=== PATIENT | male | born 1960 | race Caucasian/White ===

== ENCOUNTER 2016-09-23 11:45 | Emergency (ER) | payer MEDICARE ==
[~2016-09-23 11:45] MED LIST: MS C60TA2 PO; MULT-6 PO; PERC10TA27 PO; VITA100064 PO
[2016-09-23 11:54] VITALS: BP 140/83; PULSE 80; RESP 16; TEMP 98.1; O2SAT 98
[2016-09-23] MEDS ORDERED: ASPI81CH CHEW (12:01)
--- NOTE | 2016-09-23 12:05 | PD ---
HPI Chief Complaint: Chest Pain Time Seen by Provider: 12:05 Travel History International Travel<30 days: No Contact w/Intl Traveler<30days: No Traveled to known affect area: No History of Present Illness HPI 55-year-old male came to the emergency room with history of vomiting for past 5 days. Patient says he is unable to keep any food down. His last vomiting was 1 hour ago. He also has history of coronary artery disease and has a defibrillator. He says he felt an hour ago that his chest got hit by a baseball bat. He thinks his defibrillator went off. He's been having some chest pain associated with all this. He says his has the same symptoms and is in a shelter. Vital signs were within acceptable limits. He took an aspirin at home today. [facility] Past Medical History Narrative Medical List of his past medical, surgical, family and social history was reviewed from the nursing note. Cancer: No Cardiovascular Problems: Yes Coronary Artery Disease: Yes Diabetes: No Diminished Hearing: No Endocrine: No Gastrointestinal Disorders: Yes (hx of gastric by-pass) Genitourinary: No Hepatitis: Yes (C) Hiatal Hernia: No Immune Disorder: No Musculoskeletal: Yes Neurologic: Yes (back problems christiano hands occ numbness and tingling) Psychiatric: No Reproductive: No Respiratory: No Myocardial Infarction: Yes Thyroid Disease: No PNEUMOCCOCAL Vaccine (Year): 2009 Past Surgical History Abdominal Surgery: Yes (GASTRIC BYPASS lap jd) AICD: No Cardiac Surgery: Yes (PACER MAKER ) Cholecystectomy: Yes Joint Replacement: No Oral Surgery: Yes (sinusotomy) Pacemaker: Yes (2005 ) Other Surgery: Yes (LEFT FACE RECONSTRUCTION) Social History Alcohol Use: No Tobacco Use: Yes (1PPD) Substance Use: No Allergies-Medications (Allergen,Severity, Reaction): Coded Allergies: Benadryl (Verified Allergy, Severe, UNKNOWN, 09/23/16) Darvon (Verified Allergy, Severe, RASH, 09/23/16) Demerol (Verified Allergy, Severe, Anaphylaxis, 09/23/16) Vistaril (Verified Allergy, Severe, MOUTH EXCORAITION, 09/23/16) Comments List of his allergies reviewed from the nursing note. Reported Meds & Prescriptions Reported Meds & Active Scripts Active Reported Metoprolol Tartrate 25 Mg Tab 25 Mg PO DAILY Aspirin 81 Mg Chew 81 Mg CHEW DAILY Vitamin D (Cholecalciferol) 1,000 Unit Tab 1,000 Units PO DAILY Centrum (Multiple Vitamins W/ Minerals) 1 Tab 1 Tab PO DAILY Percocet (Oxycodone-Acetaminophen) 10-325 mg Tab 1 Tab PO Q6H PRN Contin (Morphine Sulfate) 60 Mg Tab 60 Mg PO BID Narrative Medication List of his own medications reviewed from the nursing note. Review of Systems Except as stated in HPI: all other systems reviewed are Neg Physical Exam Narrative GENERAL: Awake, alert, anxious, moderate distress SKIN: Focused skin assessment warm/dry. HEAD: Atraumatic. Normocephalic. EYES: Pupils equal and round. No scleral icterus. No injection or drainage. ENT: No nasal bleeding or discharge. Dry mucous membrane NECK: Trachea midline. No JVD. CARDIOVASCULAR: Regular rate and rhythm. No murmur appreciated. RESPIRATORY: No accessory muscle use. Clear to auscultation. Breath sounds equal bilaterally. GASTROINTESTINAL: Abdomen soft, non-tender, nondistended. Hepatic and splenic margins not palpable. MUSCULOSKELETAL: No obvious deformities. No clubbing. No cyanosis. No edema. NEUROLOGICAL: Awake and alert. No obvious cranial nerve deficits. Motor grossly within normal limits. Normal speech. PSYCHIATRIC: Appropriate mood and affect; insight and judgment normal. Data Data Last Documented VS Orders Electrocardiogram (09/23/16 12:12) Basic Metabolic Panel (Bmp) (09/23/16 12:12) Ckmb (Isoenzyme) Profile (09/23/16 12:12) Complete Blood Count With Diff (09/23/16 12:12) Magnesium (Mg) (09/23/16 12:12) Prothrombin Time / Inr (Pt) (09/23/16 12:12) Act Partial Throm Time (Ptt) (09/23/16 12:12) Troponin I (09/23/16 12:12) Chest, Single Ap (09/23/16 12:12) Ecg Monitoring (09/23/16 12:12) Bilateral Bp Monitoring (09/23/16 12:12) Iv Access Insert/Monitor (09/23/16 12:12) Oximetry (09/23/16 12:12) Oxygen Administration (09/23/16 12:12) Sodium Chloride 0.9% Flush (Ns Flush) (09/23/16 12:15) Sodium Chlor 0.9% 1000 Ml Inj (Ns 1000 M (09/23/16 12:15) Morphine Inj (Morphine Inj) (09/23/16 12:30) Ondansetron Inj (Zofran Inj) (09/23/16 12:30) Labs MDM Medical Decision Making Medical Screen Exam Complete: Yes Emergency Medical Condition: Yes Medical Record Reviewed: Yes Interpretation(s) Twelve-lead EKG was reviewed by me. Normal sinus rhythm, long QTC, normal axis. Heart rate of 60 bpm. Differential Diagnosis ACS, STEMI, electrolyte abnormality, dehydration Narrative Course 12:28 PM awaiting for the blood test results to come back. Patient has been complaining of pain and he's been given pain medication. I've ordered a liter of IV fluid bolus as well. [employer] business process representative has been called to interrogate device. 1:[address] [employer] business process representative was here who has interrogated the device. He corrected that the patient does not have any ICD but instead a dual-chamber pacemaker only. In which case the device couldn't have fired. And has had very brief runs of ventricular tachycardia over the past few days. He is going to discuss that report with Dr. Hogan as well. Patient has not vomited anymore since then. The blood test results of back and they are completely within normal limits. I'm comfortable discharging this patient home. He needs to follow up with Dr. Hogan at this point. Procedures EKG Prior to Arrival: Yes Diagnosis Primary Impression: Vomiting Qualified Code: R11.2 - Non-intractable vomiting with nausea, unspecified vomiting type Additional Impression: Chest pain Qualified Code: R07.9 - Chest pain, unspecified type Referrals: Primary Care Physician 2 days Additional Instructions: Please return to the ER if the condition worsens or any other new concerns. Lites follow-up with your neon sign worker in your primary care in couple days. Med/Other Pt SpecificInfo: No Change to Meds Disposition: 01 DISCHARGE HOME Condition: Stable Alondra Hartley MD Sep 23, 2016 12:05 Monocytes # (Auto) 0.7 TH/MM3 Eosinophils # (Auto) 0.0 TH/MM3 Basophils # (Auto) 0.1 TH/MM3 CBC Comment DIFF FINAL Differential Comment Prothrombin Time 12.8 SEC Prothromb Time International 1.2 RATIO Ratio Activated Partial 26.6 SEC Thromboplast Time Sodium Level 142 MEQ/L Potassium Level 3.8 MEQ/L Chloride Level 108 MEQ/L Carbon Dioxide Level 23.1 MEQ/L Anion Gap 11 MEQ/L Blood Urea Nitrogen 11 MG/DL Creatinine 1.00 MG/DL Estimat Glomerular Filtration 78 ML/MIN Rate Random Glucose 97 MG/DL Calcium Level 9.2 MG/DL Magnesium Level 2.0 MG/DL Total Creatine Kinase 81 U/L Troponin I LESS THAN 0.02 NG/ML MDM Medical Decision Making Medical Screen Exam Complete: Yes Emergency Medical Condition: Yes Medical Record Reviewed: Yes Interpretation(s) Twelve-lead EKG was reviewed by me. Normal sinus rhythm, long QTC, normal axis. Heart rate of 60 bpm. Differential Diagnosis ACS, STEMI, electrolyte abnormality, dehydration Narrative Course 12:28 PM awaiting for the blood test results to come back. Patient has been complaining of pain and he's been given pain medication. I've ordered a liter of IV fluid bolus as well. [employer] business process representative has been called to interrogate device. 1:[address] [employer] business process representative was here who interrogated the device. He corrected that the patient does not have any ICD but instead a dual-chamber pacemaker. In which case the device couldn't have fired. And has had very brief runs of ventricular tachycardia over the past few days. He is going to discuss that report with Dr. Hogan as well. Patient has not vomited anymore since then. The blood test results of back and they are completely within normal limits. I'm comfortable discharging this patient home. He needs to follow up with Dr. Hogan at this point. Procedures EKG Prior to Arrival: Yes Diagnosis Primary Impression: Vomiting Qualified Code: R11.2 - Non-intractable vomiting with nausea, unspecified vomiting type Additional Impression: Chest pain Qualified Code: R07.9 - Chest pain, unspecified type Referrals: Primary Care Physician 2 days Additional Instructions: Please return to the ER if the condition worsens or any other new concerns. Lites follow-up with your neon sign worker in your primary care in couple days. Med/Other Pt SpecificInfo: No Change to Meds Disposition: 01 DISCHARGE HOME Condition: Stable Alondra Hartley MD Sep 23, 2016 12:05
[2016-09-23] MEDS ORDERED: METO25TA3 PO (12:10)
[2016-09-23 12:15] VITALS: O2SAT 97
[2016-09-23] MEDS ORDERED: SODIUM CHLORIDE 0.9% FLUSH 10 ML FLUSH IVF PRN (12:15)
[2016-09-23] MEDS ORDERED: SODIUM CHLOR 0.9% 1000 ML INJ 1,000 ML IV ONE (12:15)
[2016-09-23 12:26] LABS: AUTOMATED NEUTROPHIL # 6.2 TH/MM3 (1.8-7.7); BASOPHIL # 0.1 TH/MM3 (0-0.2); BASOPHIL % 0.7 % (0.0-2.0); EOSINOPHIL % 0.1 % (0.0-4.0); HEMATOCRIT 52.9 % (39.0-51.0); LYMPH % 26.5 % (9.0-44.0); LYMPHOCYTE # 2.5 TH/MM3 (1.0-4.8); MEAN CELL VOLUME 87.1 FL (80.0-100.0); MEAN CORPUSCULAR HEMOGLOBIN 28.3 PG (27.0-34.0); MEAN CORPUSCULAR HGB CONC 32.5 % (32.0-36.0); MONO % 7.6 % (0.0-8.0); NEUT % 65.1 % (16.0-70.0); PLATELET COUNT 253 TH/MM3 (150-450); RED BLOOD COUNT 6.07 MIL/MM3 (4.50-5.90); RED CELL DISTRIBUTION WIDTH 14.5 % (11.6-17.2); WHITE BLOOD COUNT 9.5 TH/MM3 (4.0-11.0)
[2016-09-23 12:27] LABS: HEMO FLAGS DIFF FINAL
[2016-09-23] MEDS ORDERED: ONDANSETRON HCL 4 MG/2 ML VIAL IV PUSH ONE (12:30)
[2016-09-23] MEDS ORDERED: MORPHINE SULFATE 4 MG/ML INJ IV PUSH ONE (12:30)
[2016-09-23 12:37] LABS: CHLORIDE 108 MEQ/L (98-107); POTASSIUM 3.8 MEQ/L (3.5-5.1); SODIUM (NA) 142 MEQ/L (136-145)
[2016-09-23 12:40] LABS: ANION GAP 11 MEQ/L (5-15); BICARBONATE 23.1 MEQ/L (21.0-32.0); BLOOD UREA NITROGEN 11 MG/DL (7-18)
[2016-09-23 12:41] LABS: APTT (PATIENT) 26.6 SEC (24.3-30.1); INTERNATIONAL NORMALIZED RATIO 1.2 RATIO; PROTHROMBIN TIME - PATIENT 12.8 SEC (9.8-11.6)
[2016-09-23 12:43] LABS: GLOMERULAR FILTRATION RATE 78 ML/MIN (>89)
[2016-09-23 12:51] LABS: CREATINE KINASE 81 U/L (39-308)
--- NOTE | 2016-09-23 13:35 | RADHPO ---
EXAM DATE/TIME: 09/23/2016 12:39 [facility] COMPARISON: CHEST SINGLE AP, May 05, 2016, 9:06. INDICATIONS : Chest pain today. MEDICAL HISTORY : Myocardial infarction. Hepatitis C. Coronary artery disease. SURGICAL HISTORY : Pacemaker. ENCOUNTER: Initial ACUITY: 1 day PAIN SCORE: 8/10 LOCATION: Bilateral chest FINDINGS: A single view of the chest demonstrates the lungs to be symmetrically aerated without evidence of mas s, infiltrate or effusion. Patient is in the right chest. The cardiomediastinal contours are unremar kable. Osseous structures are intact. CONCLUSION: No acute disease. Pacemaker on the right. Alexander Zhang MD FACR on September 23, 2016 at 13:32 Board Certified Radiologist. This report was verified electronically.
--- NOTE | 2016-09-24 13:53 | EKG ---
Date Performed: 09/23/2016 Time Performed: 11:44:56 PTAGE: 55 years EKG: Normal Sinus rhythm with ectopic atrial beats. Abnormal ECG PREVIOUS TRACING : 05/05/2016 14.42 Compared to the previous tracing there is no significant ch vanessa. DOCTOR: Pieter Trinidad Interpretating Date/Time 09/24/2016 13:50:33
== END 2016-09-23 14:11 | disposition home or self-care (01) ==
LOC: PHED 11:45
DX: R11.2 Nausea with vomiting, unspecified (principal); R07.9 Chest pain, unspecified; R94.31 Abnormal electrocardiogram [ECG] [EKG]; I47.2 Ventricular tachycardia; F17.200 Nicotine dependence, unspecified, uncomplicated; I25.2 Old myocardial infarction; Z95.0 Presence of cardiac pacemaker; Z98.84 Bariatric surgery status; Z86.79 Personal history of other diseases of the circulatory system; Z87.19 Personal history of other diseases of the digestive system; Z86.19 Personal history of other infectious and parasitic diseases; Z87.39 Personal history of other diseases of the musculoskeletal system and connective tissue; Z86.69 Personal history of other diseases of the nervous system and sense organs
CPT/HCPCS: 71010; 80048; 82550; 83735; 84484; 85025; 85610; 85730; 93005; 96361; 96374; 96375; 99285; J2270; J2405; J7030

== ENCOUNTER 2016-11-10 05:58 | Inpatient (IN) | payer MEDICARE ==
[2016-11-10] VITALS (21 sets, daily range): BP systolic 84–154; BP diastolic 57–78; PULSE 75–151; RESP 14–22; TEMP 97.6–99.5; O2SAT 96–100
[~2016-11-10] VITALS: Ht 177.8 cm; Wt 71.9 kg
[~2016-11-10 05:58] MED LIST changes: +ASPI81CH CHEW; +METO25TA3 PO
[2016-11-10] MEDS ORDERED: SODIUM CHLOR 0.9% 1000 ML INJ 1,000 ML IV SCH (06:17)
--- NOTE | 2016-11-10 06:28 | PD ---
HPI Chief Complaint: GI bleed Time Seen by Provider: 06:17 Travel History International Travel<30 days: No Contact w/Intl Traveler<30days: No Traveled to known affect area: No History of Present Illness HPI 56-year-old male presents to the emergency department by private transportation in the care of his family for evaluation of generalized weakness and red blood per rectum. Patient underwent colonoscopy yesterday and endoscopy by Dr Ponce at [facility]. Patient had biopsies. Patient states that the colonoscopy was not completed due to too much stool in the intestinal tract. Patient states since 2:30 after yesterday afternoon he's had abdominal pain and has noted some red blood per rectum. Patient states she's had approximate 5-6 bloody stools and 4-5 episodes of hematemesis. No coffee- ground emesis. Patient has history of CAD with previous PR and secondary cardiomyopathy with pacemaker AICD placement. Patient also has prior history of hypertension and hepatitis B hepatitis C and more recently has been concerning for liver cancer. Patient has had 70 pound weight loss in a 3 month period. Patient has not had syncope or near syncope and has not had chest pain or new shortness of breath. Patient does complain of generalized abdominal pain. Patient complains of generalized weakness. Patient does not take any blood thinning agent other than a daily low-dose aspirin. Patient denies fever chills.. PFSH Past Medical History Narrative Medical CAD PR pacemaker AICD gastric bypass hepatitis C chronic pain syndrome with peripheral neuropathy cholecystectomy tobaccoism; nursing notes reviewed Cancer: No Cardiovascular Problems: Yes Coronary Artery Disease: Yes Diabetes: No Diminished Hearing: No Endocrine: No Gastrointestinal Disorders: Yes (hx of gastric by-pass) Genitourinary: No Hepatitis: Yes (C) Hiatal Hernia: No Immune Disorder: No Musculoskeletal: Yes Neurologic: Yes (back problems christiano hands occ numbness and tingling) Psychiatric: No Reproductive: No Respiratory: No Myocardial Infarction: Yes Thyroid Disease: No PNEUMOCCOCAL Vaccine (Year): 2009 Past Surgical History Abdominal Surgery: Yes (GASTRIC BYPASS lap jd) AICD: No Cardiac Surgery: Yes (PACER MAKER ) Cholecystectomy: Yes Joint Replacement: No Oral Surgery: Yes (sinusotomy) Pacemaker: Yes (2005 ) Other Surgery: Yes (LEFT FACE RECONSTRUCTION) Social History Alcohol Use: No Tobacco Use: Yes (1PPD) Substance Use: No Allergies-Medications (Allergen,Severity, Reaction): Coded Allergies: Benadryl (Verified Allergy, Severe, UNKNOWN, 11/10/16) Darvon (Verified Allergy, Severe, RASH, 11/10/16) Demerol (Verified Allergy, Severe, Anaphylaxis, 11/10/16) Vistaril (Verified Allergy, Severe, MOUTH EXCORAITION, 11/10/16) Reported Meds & Prescriptions Reported Meds & Active Scripts Active Reported Calcium Ascorbate 500 Mg Tab 500 Mg PO DAILY Centrum Silver Men Tablet (Multivit-Min/FA/Lycopen/Lutein) 1 Each Tablet 1 Tab PO DAILY Morphine ER (Morphine Sulfate) 60 Mg Tab 60 Mg PO TID Vitamin D (Cholecalciferol) 1,000 Unit Tab 1,000 Units PO DAILY Percocet (Oxycodone-Acetaminophen) 10-325 mg Tab 1 Tab PO Q6H PRN Review of Systems Except as stated in HPI: all other systems reviewed are Neg General / Constitutional: No: Fever, Chills HENT: No: Congestion Cardiovascular: Positive: Palpitations, Tachycardia, No: Chest Pain or Discomfort Respiratory: No: Shortness of Breath Gastrointestinal: Positive: Nausea, Vomiting, Diarrhea, Abdominal Pain, Hematemesis, Hematochezia Genitourinary: No: Dysuria, Pelvic Pain Musculoskeletal: No: Myalgias, Arthralgias Skin: No Rash Neurologic: Positive: Weakness, Dizziness, No: Syncope, Focal Abnormalities, Coordination Problem Psychiatric: Positive: Anxiety Hematologic/Lymphatic: Positive: Easy Bruising Physical Exam Narrative GENERAL: Then ill-appearing male with tachycardia and hypotension SKIN: Warm and dry. HEAD: Normocephalic. EYES: No scleral icterus. No injection or drainage. NECK: Supple, trachea midline. No JVD or lymphadenopathy. CARDIOVASCULAR: Increased Regular rate and rhythm without murmurs, gallops, or rubs. RESPIRATORY: Breath sounds equal bilaterally. No accessory muscle use. GASTROINTESTINAL: Abdomen soft, non-tender, nondistended. Rectal exam: Normal sphincter tone, maroon stool on exam glove; no palpable mass MUSCULOSKELETAL: No cyanosis, or edema. BACK: Nontender without obvious deformity. No CVA tenderness. Data Data Last Documented VS Vital Signs Date Time Temp Pulse Resp B/P Pulse Ox O2 Delivery O2 Flow Rate FiO2 11/10/16 06:50 89 95/63 11/10/16 06:30 20 97 Room Air 11/10/16 06:06 97.6 Orders Complete Blood Count With Diff (11/10/16 06:17) Comprehensive Metabolic Panel (11/10/16 06:17) Lipase (11/10/16 06:17) Prothrombin Time / Inr (Pt) (11/10/16 06:17) Act Partial Throm Time (Ptt) (11/10/16 06:17) Urinalysis - C+S If Indicated (11/10/16 06:17) Type And Screen (11/10/16 06:17) Chest, Single Ap (11/10/16 06:17) Ecg Monitoring (11/10/16 06:17) Iv Access Insert/Monitor (11/10/16 06:17) Oximetry (11/10/16 06:17) Ondansetron Inj (Zofran Inj) (11/10/16 06:30) Sodium Chlor 0.9% 1000 Ml Inj (Ns 1000 M (11/10/16 06:17) Sodium Chloride 0.9% Flush (Ns Flush) (11/10/16 06:30) Pantoprazole Inj (Protonix Inj) (11/10/16 06:30) Pantoprazole Inj (Protonix Inj) (11/10/16 06:30) Sodium Chlor 0.9% 1000 Ml Inj (Ns 1000 M (11/10/16 06:30) Electrocardiogram (11/10/16 ) Magnesium (Mg) (11/10/16 06:17) Troponin I (11/10/16 06:17) Red Blood Cells (Rbc) (11/10/16 07:01) Blood Product Administration .UPON TRANSFUSION (11/10/16 07:01) Sodium Chlor 0.9% 250 Ml Inj (Ns 250 Ml (11/10/16 07:15) Sodium Chlor 0.9% 1000 Ml Inj (Ns 1000 M (11/10/16 07:15) Admit Order (Ed Use Only) (11/10/16 ) ^ Saline Lock (11/10/16 07:12) Resp Oxygen Girish C Titrat 1-4 L (11/10/16 ) Notify Dr: Other (11/10/16 07:12) Sodium Chloride 0.9% Flush (Ns Flush) (11/10/16 09:00) Sodium Chloride 0.9% Flush (Ns Flush) (11/10/16 07:15) Labs Laboratory Tests Test 11/10/16 06:20 White Blood Count 15.3 TH/MM3 Red Blood Count 3.83 MIL/MM3 Hemoglobin 11.6 GM/DL Hematocrit 35.0 % Mean Corpuscular Volume 91.4 FL Mean Corpuscular Hemoglobin 30.3 PG Mean Corpuscular Hemoglobin 33.1 % Concent Red Cell Distribution Width 16.1 % Platelet Count 248 TH/MM3 Mean Platelet Volume 7.6 FL Neutrophils (%) (Auto) 70.7 % Lymphocytes (%) (Auto) 22.1 % Monocytes (%) (Auto) 6.2 % Eosinophils (%) (Auto) 0.7 % Basophils (%) (Auto) 0.3 % Neutrophils # (Auto) 10.9 TH/MM3 Lymphocytes # (Auto) 3.4 TH/MM3 Monocytes # (Auto) 0.9 TH/MM3 Eosinophils # (Auto) 0.1 TH/MM3 Basophils # (Auto) 0.0 TH/MM3 CBC Comment DIFF FINAL Differential Comment Prothrombin Time 12.3 SEC Prothromb Time International 1.1 RATIO Ratio Activated Partial 24.0 SEC Thromboplast Time Sodium Level 144 MEQ/L Potassium Level 5.1 MEQ/L Chloride Level 110 MEQ/L Carbon Dioxide Level 25.5 MEQ/L Anion Gap 9 MEQ/L Blood Urea Nitrogen 32 MG/DL Creatinine 0.97 MG/DL Estimat Glomerular Filtration 80 ML/MIN Rate Random Glucose 159 MG/DL Calcium Level 8.2 MG/DL Magnesium Level 1.8 MG/DL Total Bilirubin 0.4 MG/DL Aspartate Amino Transf 13 U/L (AST/SGOT) Alanine Aminotransferase 25 U/L (ALT/SGPT) Alkaline Phosphatase 49 U/L Troponin I LESS THAN 0.02 NG/ML Total Protein 5.1 GM/DL Albumin 2.5 GM/DL Lipase 69 U/L [facility] Medical Decision Making Medical Screen Exam Complete: Yes Emergency Medical Condition: Yes Medical Record Reviewed: Yes Interpretation(s) EKG: Normal sinus rhythm rate 84 nonspecific septal T wave changes no acute ST elevation or injury pattern change noted Vital Signs Date Time Temp Pulse Resp B/P Pulse Ox O2 Delivery O2 Flow Rate FiO2 11/10/16 06:50 89 95/63 11/10/16 06:30 92 20 97/64 97 Room Air 11/10/16 06:15 98 Room Air 11/10/16 06:06 97.6 151 18 100/76 100 CBC & BMP Diagram 11/10/16 06:20 Coagulation studies normal range Troponin I less than 0.02, not elevated LFTs are within normal limits and lipase is 69, not elevated Differential Diagnosis GI bleed, post endoscopy/colonoscopy complication, AVM, intestinal perforation, coagulopathy, anemia, hemorrhagic shock Narrative Course Patient placed on property assessment monitor to 18-gauge angiocatheter inserted patient given normal saline bolus 1 L normal saline 2 along with Protonix infusion Zofran 4 mg and type and screen; patient and family informed that he will require admission and may require transfer to [facility] Hemoglobin: 11.6 @ 6:51 AM her rate is 90 blood pressure is 96/54; discussing patient with Dr Mcguire ---request 3rd liter of NS Physician Communication Physician Communication call placed to manufacturing industrial engineer --- Dr Mgcuire --will be in to see; call placed to GI -- discussed with Dr Hopson Diagnosis Primary Impression: Upper gastrointestinal bleed Additional Impressions: Anemia Qualified Code: D64.9 - Anemia, unspecified type Hypotension Qualified Code: I95.9 - Hypotension, unspecified hypotension type Admitting Information Admitting Physician Requests: Admit Olivia Ortiz MD Nov 10, 2016 06:28
[2016-11-10] MEDS ORDERED: ONDANSETRON HCL 4 MG/2 ML VIAL IVP ONE (06:30)
[2016-11-10] MEDS ORDERED: SODIUM CHLOR 0.9% 1000 ML INJ 1,000 ML IV ONE ×3 (06:30→09:00)
[2016-11-10] MEDS ORDERED: SODIUM CHLORIDE 0.9% FLUSH 10 ML FLUSH IVF PRN ×2 (06:30→07:15)
[2016-11-10] MEDS ORDERED: PANTOPRAZOLE INJ 80 MG in SODIUM CHLORIDE 0.9% INJ 35 ML IV ONE (06:30)
--- NOTE | 2016-11-10 06:34 | RADHPO ---
EXAM DATE/TIME: 11/10/2016 06:25 [facility] COMPARISON: CHEST SINGLE AP, September 23, 2016, 12:39. INDICATIONS : Chest pain. MEDICAL HISTORY : Myocardial infarction. Hepatitis C. Coronary artery disease. SURGICAL HISTORY : Pacemaker. ENCOUNTER: Initial ACUITY: 1 day PAIN SCORE: 4/10 LOCATION: Bilateral chest FINDINGS: A single view of the chest demonstrates the lungs to be symmetrically aerated without evidence of mas s, infiltrate or effusion. The cardiomediastinal contours are unremarkable. Osseous structures are intact. CONCLUSION: Normal examination. Right subclavian multilead pacer in good position Quincy Thomas MD on November 10, 2016 at 6:33 Board Certified Radiologist. This report was verified electronically.
[2016-11-10] MEDS: PANTOPRAZOLE INJ 80 MG in SODIUM CHLORIDE 0.9% INJ 100 ML IV SCH ×3 (06:43→19:53)
[2016-11-10 06:45] LABS: AUTOMATED NEUTROPHIL # 10.9 TH/MM3 (1.8-7.7); BASOPHIL % 0.3 % (0.0-2.0); EOSINOPHIL # 0.1 TH/MM3 (0-0.4); EOSINOPHIL % 0.7 % (0.0-4.0); HEMO FLAGS DIFF FINAL; LYMPH % 22.1 % (9.0-44.0); LYMPHOCYTE # 3.4 TH/MM3 (1.0-4.8); MEAN CELL VOLUME 91.4 FL (80.0-100.0); MEAN CORPUSCULAR HEMOGLOBIN 30.3 PG (27.0-34.0); MEAN CORPUSCULAR HGB CONC 33.1 % (32.0-36.0); MONO % 6.2 % (0.0-8.0); NEUT % 70.7 % (16.0-70.0); PLATELET COUNT 248 TH/MM3 (150-450); RED BLOOD COUNT 3.83 MIL/MM3 (4.50-5.90); RED CELL DISTRIBUTION WIDTH 16.1 % (11.6-17.2); WHITE BLOOD COUNT 15.3 TH/MM3 (4.0-11.0)
[2016-11-10 06:56] LABS: CHLORIDE 110 MEQ/L (98-107); POTASSIUM 5.1 MEQ/L (3.5-5.1); SODIUM (NA) 144 MEQ/L (136-145)
[2016-11-10 07:00] LABS: ANION GAP 9 MEQ/L (5-15); BICARBONATE 25.5 MEQ/L (21.0-32.0); BLOOD UREA NITROGEN 32 MG/DL (7-18); INTERNATIONAL NORMALIZED RATIO 1.1 RATIO; MAGNESIUM 1.8 MG/DL (1.5-2.5); PROTHROMBIN TIME - PATIENT 12.3 SEC (9.8-11.6)
[2016-11-10] MEDS ORDERED: MORP1TAB26 PO (07:00)
[2016-11-10] MEDS ORDERED: MULT1TAB64 PO (07:00)
[2016-11-10 07:03] LABS: ALT (GPT) 25 U/L (12-78); AST (GOT) 13 U/L (15-37); GLOMERULAR FILTRATION RATE 80 ML/MIN (>89)
[2016-11-10 07:05] LABS: TOTAL BILIRUBIN ADULT 0.4 MG/DL (0.2-1.0)
[2016-11-10] MEDS ORDERED: CALC500T37 PO (07:05)
[2016-11-10 07:06] LABS: ALKALINE PHOSPHATASE 49 U/L (45-117)
[2016-11-10] MEDS ORDERED: SODIUM CHLOR 0.9% 250 ML INJ 250 ML IV ONE (07:15)
[2016-11-10] MEDS ORDERED: CYAN1000P SQ (07:19)
[2016-11-10] MEDS ORDERED: CHLORHEXIDINE GLUCONATE 2 % 1 PACK (2 CLOTHS) TOP PRN (07:30)
[2016-11-10] MEDS ORDERED: RESP: ALBUTEROL 2.5 MG/IPRATROPIUM 0.5 MG NEB (PRN) INH (07:30)
[2016-11-10] MEDS ORDERED: LACTULOSE SYRUP 20 GM/30 ML CUP PO PRN (07:30)
[2016-11-10] MEDS ORDERED: METOCLOPRAMIDE HCL 10 MG/2 ML VIAL IV PRN (07:30)
[2016-11-10] MEDS ORDERED: ACETAMINOPHEN 325 MG TAB PO PRN (07:30)
[2016-11-10] MEDS ORDERED: MISCELLANEOUS NURSING INFORMATION XX SCH (07:30)
[2016-11-10] MEDS ORDERED: SODIUM CHLORIDE 0.9% FLUSH 10 ML FLUSH IV FLUSH PRN (07:30)
[2016-11-10] MEDS ORDERED: SENNOSIDES 8.6 MG TAB PO PRN (07:30)
[2016-11-10] MEDS ORDERED: MAGNESIUM HYDROXIDE SUSP 30 ML CUP PO PRN (07:30)
[2016-11-10] MEDS ORDERED: BISACODYL 10 MG SUPP RECTAL PRN (07:30)
[2016-11-10] MEDS ORDERED: ONDANSETRON HCL 4 MG/2 ML VIAL IV PRN (07:30)
[2016-11-10] MEDS: SODIUM CHLOR 0.9% 1000 ML INJ 1,000 ML IV SCH ×2 (08:53→11:17)
[2016-11-10] MEDS ORDERED: MORPHINE SULFATE 4 MG/ML INJ IV ONE (09:00)
[2016-11-10] MEDS: DOCUSATE SODIUM 50 MG/SENNA 8.6 MG TAB PO SCH ×2 (09:00→19:53)
[2016-11-10] MEDS ORDERED: SODIUM CHLORIDE 0.9% FLUSH 10 ML FLUSH IV FLUSH SCH (09:00)
[2016-11-10 09:14] LABS: HEMATOCRIT 26.4 % (39.0-51.0); REVIEW FLAG FINAL
[2016-11-10] MEDS ORDERED: IOHEXOL 350 MG/ML 10 ML VIAL (for RAD DIAG) IV ONE (09:23)
--- NOTE | 2016-11-10 09:45 | HHI.HP ---
HPI Service Critical Care Medicine Primary Care Physician Non-Staff Admission Diagnosis Upper GI Bleed w/ hypotension; s/p EGD Diagnosis: Chief Complaint: Rectal bleeding, hematemesis Travel History International Travel<30 Days: No Contact w/Intl Traveler <30 Da: No Traveled to Known Affected Are: No History of Present Illness HPI 56-year-old male presents to the emergency department by private transportation in the care of his family for evaluation of generalized weakness and red blood per rectum. Patient underwent colonoscopy yesterday and endoscopy by Dr Ponce at [facility]. Patient had biopsies. Patient states that the colonoscopy was not completed due to too much stool in the intestinal tract. Patient states since 2:30 after yesterday afternoon he's had abdominal pain and has noted some red blood per rectum. Patient states she's had approximate 5-6 bloody stools and 4-5 episodes of hematemesis. No coffee- ground emesis. Patient has history of CAD with previous [place] 13 years ago at which time he also had a pacemaker placed and recently had the pacemaker replaced due to low battery. Patient also has prior history of hypertension and hepatitis B hepatitis C. Patient has had 70 pound weight loss in a 3 month period. Patient has not had syncope or near syncope and has not had chest pain or new shortness of breath. Patient started experiencing abdominal pain last night and around 2:30 AM had a bout of nausea vomiting with hematemesis as well as multiple bowel movements which had fresh blood filling of the toilet bowl according to patient's . Currently Patient does complain of generalized abdominal pain. Patient complains of generalized weakness. Patient does not take any blood thinning agent other than a daily low-dose aspirin. Patient denies fever chills. He has not had any imaging studies of his abdomen recently. His gastric bypass was done about 16 years ago in [place]. Patient was accepted for admission by critical care medicine service. He had received 3 L of normal saline bolus at the time of my evaluation and his blood pressure up appeared to respond to fluid boluses. His normal hemoglobin runs around 17 from a few months ago and he was down to 11 g percent on arrival in the ER prior to initiating fluid boluses. Rectal exam done by ER physician showed maroon stool. Patient dropped his blood pressure to the 90s on stopping fluid bolus hence a fourth liter normal saline bolus was ordered. We are awaiting 2 units PRBCs which were ordered to be transfused by ER physician. I have asked for first unit of PRBC to be transfused stat wide open. Patient is to be transferred to the main hospital and I discussed with Dr. Hopson from GI regarding ongoing GI bleed requiring fluid boluses and he is planning on performing EGD following patient's arrival to the [facility]. CT abdomen pelvis has already been ordered and report was pending at the time of my dictation. PFSH Past Medical History Narrative Medical CAD [place] pacemaker AICD gastric bypass hepatitis C, ? Hep B, chronic pain syndrome with peripheral neuropathy cholecystectomy tobaccoism; nursing notes reviewed Cancer: No Cardiovascular Problems: Yes Coronary Artery Disease: Yes Diabetes: No Diminished Hearing: No Endocrine: No Gastrointestinal Disorders: Yes (hx of gastric by-pass) Genitourinary: No Hepatitis: Yes (C) Hiatal Hernia: No Immune Disorder: No Musculoskeletal: Yes Neurologic: Yes (back problems christiano hands occ numbness and tingling) Psychiatric: No Reproductive: No Respiratory: No Myocardial Infarction: Yes Thyroid Disease: No PNEUMOCCOCAL Vaccine (Year): 2009 Past Surgical History Abdominal Surgery: Yes (GASTRIC BYPASS lap jd) AICD: No Cardiac Surgery: Yes (PACER MAKER ) Cholecystectomy: Yes Joint Replacement: No Oral Surgery: Yes (sinusotomy) Pacemaker: Yes (2005 ) Other Surgery: Yes (LEFT FACE RECONSTRUCTION) Social History Alcohol Use: No Tobacco Use: Yes (1PPD) Substance Use: No Allergies-Medications (Allergen,Severity, Reaction): Coded Allergies: Benadryl (Verified Allergy, Severe, UNKNOWN, 11/10/16) Darvon (Verified Allergy, Severe, RASH, 11/10/16) Demerol (Verified Allergy, Severe, Anaphylaxis, 11/10/16) Vistaril (Verified Allergy, Severe, MOUTH EXCORAITION, 11/10/16) Reported Meds & Prescriptions Reported Meds & Active Scripts Active Reported Calcium Ascorbate 500 Mg Tab 500 Mg PO DAILY Centrum Silver Men Tablet (Multivit-Min/FA/Lycopen/Lutein) 1 Each Tablet 1 Tab PO DAILY Morphine ER (Morphine Sulfate) 60 Mg Tab 60 Mg PO TID Vitamin D (Cholecalciferol) 1,000 Unit Tab 1,000 Units PO DAILY Percocet (Oxycodone-Acetaminophen) 10-325 mg Tab 1 Tab PO Q6H PRN Review of Systems Except as stated in HPI: all other systems reviewed are Neg General / Constitutional: No: Fever, Chills HENT: No: Congestion Cardiovascular: Positive: Palpitations, Tachycardia, No: Chest Pain or Discomfort Respiratory: No: Shortness of Breath Gastrointestinal: Positive: Nausea, Vomiting, Diarrhea, Abdominal Pain, Hematemesis, Hematochezia Genitourinary: No: Dysuria, Pelvic Pain Musculoskeletal: No: Myalgias, Arthralgias Skin: No Rash Neurologic: Positive: Weakness, Dizziness, No: Syncope, Focal Abnormalities, Coordination Problem Psychiatric: Positive: Anxiety Hematologic/Lymphatic: Positive: Easy Bruising Physical Exam Vital Signs Vital Signs Date Time Temp Pulse Resp B/P Pulse Ox O2 Delivery O2 Flow Rate FiO2 11/10/16 09:10 17 11/10/16 07:45 89 17 112/72 100 Room Air 11/10/16 07:30 82 17 91/64 96 Room Air 11/10/16 07:30 17 11/10/16 06:50 89 95/63 11/10/16 06:30 92 20 97/64 97 Room Air 11/10/16 06:15 98 Room Air 11/10/16 06:15 136 18 84/61 100 Room Air 11/10/16 06:06 97.6 151 18 100/76 100 Physical Exam Physical Exam Narrative GENERAL: Thin ill-appearing male with tachycardia and hypotension SKIN: Warm and dry. HEAD: Normocephalic. EYES: No scleral icterus. No injection or drainage. Pallor present NECK: Supple, trachea midline. No JVD or lymphadenopathy. CARDIOVASCULAR: Increased Regular rate and rhythm without murmurs, gallops, or rubs. RESPIRATORY: Breath sounds equal bilaterally. No accessory muscle use. GASTROINTESTINAL: Abdomen soft, nondistended. Definite tenderness in lower abdomen, bowel sounds present. MUSCULOSKELETAL: No cyanosis, or edema. BACK: Nontender without obvious deformity. No CVA tenderness. Laboratory Laboratory Tests Test 11/10/16 11/10/16 11/10/16 06:20 07:01 09:00 White Blood Count 15.3 Red Blood Count 3.83 Hemoglobin 11.6 8.7 Hematocrit 35.0 26.4 Mean Corpuscular Volume 91.4 Mean Corpuscular Hemoglobin 30.3 Mean Corpuscular Hemoglobin 33.1 Concent Red Cell Distribution Width 16.1 Platelet Count 248 Mean Platelet Volume 7.6 Neutrophils (%) (Auto) 70.7 Lymphocytes (%) (Auto) 22.1 Monocytes (%) (Auto) 6.2 Eosinophils (%) (Auto) 0.7 Basophils (%) (Auto) 0.3 Neutrophils # (Auto) 10.9 Lymphocytes # (Auto) 3.4 Monocytes # (Auto) 0.9 Eosinophils # (Auto) 0.1 Basophils # (Auto) 0.0 CBC Comment DIFF FINAL Differential Comment Prothrombin Time 12.3 Prothromb Time International 1.1 Ratio Activated Partial 24.0 Thromboplast Time Sodium Level 144 Potassium Level 5.1 Chloride Level 110 Carbon Dioxide Level 25.5 Anion Gap 9 Blood Urea Nitrogen 32 Creatinine 0.97 Estimat Glomerular Filtration 80 Rate Random Glucose 159 Calcium Level 8.2 Magnesium Level 1.8 Total Bilirubin 0.4 Aspartate Amino Transf 13 (AST/SGOT) Alanine Aminotransferase 25 (ALT/SGPT) Alkaline Phosphatase 49 Troponin I LESS THAN 0.02 Total Protein 5.1 Albumin 2.5 Lipase 69 Blood Type AB POSITIVE Antibody Screen NEGATIVE Crossmatch Leukocyte-Reduced Red Blood Cells Blood Bank Comment Result Diagram: 11/10/16 0900 11/10/16 06 Imaging Last Impressions Chest X-Ray 11/10/16616 Signed Impressions: Service Date/Time: Thursday, November 10, 2016 06:25 - CONCLUSION: Normal examination. Right subclavian multilead pacer in good position Quincy Thomas MD Assessment and Plan Assessment and Plan 56-year-old male with: Hematemesis Rectal bleeding Acute blood loss anemia Hypotension History of gastric bypass History of hep C Questionable history of hep B Unexplained weight loss and 70 pounds over 3 months Coronary artery disease status post previous [place] History of pacemaker placement Plan: Neuro: Follow neuro status. Morphine when necessary for pain. Cardiovascular: Aggressive fluid resuscitation. Continue maintenance IV fluid with normal saline at 200 cc an hour. PRBC transfusions ordered. Pulmonary: Supplemental O2 as needed. Bronchodilators when necessary. Extensive smoking history noted. GI/liver: Nothing by mouth for now. GI consult requested and I have discussed the case with Dr. Hopson who will be planning further evaluation of hematemesis and rectal bleeding. Reportedly he was found to have multiple polyps in the stomach on 11/09 on EGD and multiple biopsies have been taken. Suspect bleeding from one of the biopsy sites. Awaiting CT abdomen pelvis. We'll consult general surgery to be available as backup of bleeding unable to be controlled. ID: No antibiotics at this time. Heme: Follow CBC. Serial H&H. Transfuse to keep hemoglobin above 8 g percent. 2 units PRBCs to be transfused now. Endocrine: Watch for hyperglycemia, SSI for glycemic control if needed. Check TSH in view of unexplained weight loss. Prophylaxis: On Protonix drip. SCDs. D/W ER Physician/ Dr. Hopson. D/W ER charge/ [employer]/ ICU charge in [facility] regarding need for urgent transfer Condition critical Patient being transferred to the main hospital in view of active GI bleeding with hypotension and maroon stool in anticipation of multiple blood transfusions and possible need for emergent EGDs and procedures including eccentric angiogram/bleeding scans/surgery. Time spent on critical care excluding procedures 70 minutes Mehdi Mcguire MD Nov 10, 2016 09:45
--- NOTE | 2016-11-10 09:49 | RADHPO ---
EXAM DATE/TIME: 11/10/2016 09:02 [place] COMPARISON: CT ABDOMEN & PELVIS W CONTRAST, May 05, 2016, 10:25. INDICATIONS : Vomiting blood and bloody stool since last night. IV CONTRAST: 90 cc Omnipaque 350 (iohexol) IV ORAL CONTRAST: No oral contrast ingested. RADIATION DOSE: 7.86 CTDIvol (mGy) MEDICAL HISTORY : Cardiovascular disease. Hepatitis C. SURGICAL HISTORY : Pacemaker. Cholecystectomy.Gastric bypass. ENCOUNTER: Initial ACUITY: 2 days PAIN SCALE: 6/10 LOCATION: abdomen/pelvis TECHNIQUE: Volumetric scanning of the abdomen and pelvis was performed. Using automated exposure control and ad justment of the mA and/or kV according to patient size, radiation dose was kept as low as reasonably achievable to obtain optimal diagnostic quality images. FINDINGS: The limited portion of the lung base visualized is clear. The appearance of the liver, spleen, pancreas and adrenal glands is within normal limits. There are s mall simple cysts within the kidneys bilaterally. There is no hydronephrosis. There are changes in the upper abdomen suggesting previous gastric bypass. The visualized loops of sm all and large bowel in the upper abdomen are otherwise unremarkable. The abdominal aorta is normal in caliber. There is no significant retroperitoneal lymphadenopathy. There is no free fluid within the pelvis. No iliac or inguinal adenopathy is seen. The visualized loo ps of small and large bowel are unremarkable. There are degenerative changes throughout the spine. CONCLUSION: 1. Post surgical changes involving the stomach. 2. The patient is post cholecystectomy. 3. Simple cysts within the kidneys bilaterally. 4. Degenerative changes throughout the spine. 5. No definite abnormality to explain the patient's hematochezia identified. Phuc Zhang MD on November 10, 2016 at 9:44 Board Certified Radiologist. This report was verified electronically.
[2016-11-10] MEDS ORDERED: CALCIUM GLUCONATE INJ 2 GM in SODIUM CHLORIDE 0.9% INJ 100 ML IV ONE (10:45)
--- NOTE | 2016-11-10 11:12 | PD.CONS ---
HPI History of Present Illness This is a 56 year old gentleman who presented to hospital today for hematemesis and blood in stool. Pt agitated and refusing to provide information and some of hx obtained from , EMR. This started 0230 this morning. He had lower abdominal pressure. Blood in vomit was mixed dark and bright red, some coffee ground appearance as well. He also had bright red blood per rectum, profuse, seemingly independent of stool. He was having vomit when he would strain to evacuate the blood from his rectum. He continued to have sensation of needing to have BM. He had a bloody BM about an hour ago. He also felt dizzy, and like his heart was racing. On admission he was found to be tachycardic and hypotensive. He is receiving blood now. Yesterday he had colonoscopy and upper endoscopy. Per pt colonoscopy was aborted due to suboptial prep. Colonoscopy - --> hemorrhoids, mild diverticulosis, EGD --> irr z line, hx gastric bypass, small polyp gastric fundus, multiple biopsies performed. Prior to this his last EGD and colonoscopy were in 1999. Not on blood thinners. He does have a pacemaker. Denies frequent NSAID use. Per EMR he has hx hep B, hep C, weight loss of 70 lbs in 3 months. (Kanika Abbott) PFSH Past Medical History herniated disc pt unwilling to contribute further Past Surgical History gastric bypass tumor removal nose pt unwilling to contribute further (Kanika Abbott) Coded Allergies: Benadryl (Verified Allergy, Severe, UNKNOWN, 11/10/16) Darvon (Verified Allergy, Severe, RASH, 11/10/16) Demerol (Verified Allergy, Severe, Anaphylaxis, 11/10/16) Vistaril (Verified Allergy, Severe, MOUTH EXCORAITION, 11/10/16) Family History lung ca colon ca Social History no ETOH smokes 1/2 ppd no illicit drugs (Kanika Abbott) Review of Systems Constitutional: DENIES: Fever Eyes: DENIES: Blurred vision Ears, nose, mouth, throat: DENIES: Hearing loss Respiratory: DENIES: Hemoptysis Cardiovascular: DENIES: Chest pain Gastrointestinal: COMPLAINS OF: Abdominal pain, Black stools, Bloody stools, Diarrhea, Nausea, Vomiting, Hematemesis Genitourinary: DENIES: Hematuria Musculoskeletal: DENIES: Muscle aches Integumentary: DENIES: Jaundice Hematologic/lymphatic: DENIES: Bruising Neurologic: COMPLAINS OF: Abnormal gait (uses cane) Psychiatric: DENIES: Confusion (Kanika Abbott) GI Exam Vitals I&O Vital Signs Date Time Temp Pulse Resp B/P Pulse Ox O2 Delivery O2 Flow Rate FiO2 11/10/16 09:55 97.9 84 16 112/71 99 Room Air 11/10/16 09:40 98.2 88 17 128/70 100 Room Air 11/10/16 09:25 98.3 83 17 115/72 99 Room Air 11/10/16 09:10 17 11/10/16 07:45 89 17 112/72 100 Room Air 11/10/16 07:30 82 17 91/64 96 Room Air 11/10/16 07:30 17 11/10/16 06:50 89 95/63 11/10/16 06:30 92 20 97/64 97 Room Air 11/10/16 06:15 98 Room Air 11/10/16 06:15 136 18 84/61 100 Room Air 11/10/16 06:06 97.6 151 18 100/76 100 I/O 11/09/16 11/09/16 11/09/16 11/10/16 11/10/16 11/10/16 07:00 15:00 23:00 07:00 15:00 23:00 Intake Total 3000 ml Balance 3000 ml Intake IV Total 3000 ml Laboratory Test 11/10/16 11/10/16 11/10/16 06:20 07:01 09:00 White Blood Count 15.3 TH/MM3 Red Blood Count 3.83 MIL/MM3 Hemoglobin 11.6 GM/DL 8.7 GM/DL Hematocrit 35.0 % 26.4 % Mean Corpuscular Volume 91.4 FL Mean Corpuscular Hemoglobin 30.3 PG Mean Corpuscular Hemoglobin 33.1 % Concent Red Cell Distribution Width 16.1 % Platelet Count 248 TH/MM3 Mean Platelet Volume 7.6 FL Neutrophils (%) (Auto) 70.7 % Lymphocytes (%) (Auto) 22.1 % Monocytes (%) (Auto) 6.2 % Eosinophils (%) (Auto) 0.7 % Basophils (%) (Auto) 0.3 % Neutrophils # (Auto) 10.9 TH/MM3 Lymphocytes # (Auto) 3.4 TH/MM3 Monocytes # (Auto) 0.9 TH/MM3 Eosinophils # (Auto) 0.1 TH/MM3 Basophils # (Auto) 0.0 TH/MM3 CBC Comment DIFF FINAL Differential Comment Prothrombin Time 12.3 SEC Prothromb Time International 1.1 RATIO Ratio Activated Partial 24.0 SEC Thromboplast Time Sodium Level 144 MEQ/L Potassium Level 5.1 MEQ/L Chloride Level 110 MEQ/L Carbon Dioxide Level 25.5 MEQ/L Anion Gap 9 MEQ/L Blood Urea Nitrogen 32 MG/DL Creatinine 0.97 MG/DL Estimat Glomerular Filtration 80 ML/MIN Rate Random Glucose 159 MG/DL Calcium Level 8.2 MG/DL Magnesium Level 1.8 MG/DL Total Bilirubin 0.4 MG/DL Aspartate Amino Transf 13 U/L (AST/SGOT) Alanine Aminotransferase 25 U/L (ALT/SGPT) Alkaline Phosphatase 49 U/L Troponin I LESS THAN 0.02 NG/ML Total Protein 5.1 GM/DL Albumin 2.5 GM/DL Lipase 69 U/L Blood Type AB POSITIVE Antibody Screen NEGATIVE Crossmatch Leukocyte-Reduced Red Blood Cells Blood Bank Comment Physical Examination HEENT: EOMI; normocephalic; atraumatic; no jaundice. CHEST: CTA CARDIAC: RRR ABDOMEN: Soft, nondistended, mild lower abd TTP; bowel sounds are present in all four quadrants. EXTREMITIES: No clubbing, cyanosis, or edema. SKIN: Normal; no rash; no jaundice. TRANSPORT COORDINATOR: No focal deficits; alert and oriented times three. (Kanika Abbott [facility]) Assessment and Plan Plan ASSESSMENT - hematemesis, rectal bleeding - pt with reportedly profuse rectal bleeding, hematemesis with both dark and bright red blood, maroon stool on rectal exam. Had EGD/colonoscopy yesterday, colonoscopy incomplete r/t suboptimal prep, multiple biopsies taken during EGD. Pt not on blood thinners. Will do EGD today - anemia - 11.6 on admission which is drop from previous baseline of 17. Currently 8.7. 2/2 above likely PLAN - EGD today - NPO - monitor HH - transfuse as necessary - Further recommendations to follow This pt seen by myself and Dr Hopson and this note is written on his behalf ( Kanika Abbott) Physician Comments Seen and examined, plan as above, will proceed with EGD today. (Chandrika Hopson MD) Kanika Abbott Nov 10, 2016 11:12 Chandrika Hopson MD Nov 10, 2016 14:36
[2016-11-10] MEDS: SODIUM CHLORIDE 0.9% FLUSH 10 ML FLUSH IV FLUSH SCH ×2 (11:17→19:53)
--- NOTE | 2016-11-10 14:39 | PD.CONS ---
cc: Iain Brothers MD [facility] Service DAILY PROGRESS NOTE FOR SURGICAL ATTENDING, DR. IAIN BROTHERS General Surgery Consult Requested By Dr. Mcguire ([facility]) Reason for Consult Hematemesis and rectal bleeding s/p outpatient EGD/Colonoscopy Primary Care Physician Non-Staff History of Present Illness This is a 56 year old male with a past medical and surgical history gastric bypass and pacemaker who developed hematemesis and rectal bleeding around 0230 today. Of note, he had an outpatient EGD/Colonoscopy yesterday and had several polyps biopsies with no other known complications. The patient ate dinner last night as usual with no problems. The patient presented to [facility] and was transferred to [facility] for GI and GS evaluation. The patient has already been examined by GI and they are planning EGD and colonoscopy today. Patient has been made NPO. A General Surgery consult has been requested for evaluation and standby assistance on patient with GI bleed. Review of Systems Constitutional: DENIES: Fever, Weight gain Endocrine: DENIES: Polydipsia, Polyuria, Polyphagia Eyes: DENIES: Diplopia Ears, nose, mouth, throat: DENIES: Hearing loss Respiratory: DENIES: Apneas Cardiovascular: DENIES: Chest pain Gastrointestinal: COMPLAINS OF: Abdominal pain, Black stools, Nausea (dark red ) Genitourinary: DENIES: Urgency, Hematuria Musculoskeletal: DENIES: Joint pain Integumentary: DENIES: Abnormal pigmentation Hematologic/lymphatic: DENIES: Bruising Immunologic/allergic: DENIES: Eczema Neurologic: DENIES: Abnormal gait, Headache Psychiatric: DENIES: Mood changes, Depression, Hallucinations Past Family Social History Past Medical History Herniated discs Past Surgical History Gastric Bypass Laparoscopic cholecystectomy Pacemaker LEFT nasal tumor removal Reported Medications See chart but please note he denies the use of anticoagulation Allergies: Coded Allergies: Benadryl (Verified Allergy, Severe, UNKNOWN, 11/10/16) Darvon (Verified Allergy, Severe, RASH, 11/10/16) Demerol (Verified Allergy, Severe, Anaphylaxis, 11/10/16) Vistaril (Verified Allergy, Severe, MOUTH EXCORAITION, 11/10/16) Active Ordered Medications Current Medications Medications (Trade) Dose Ordered Sig/Didier Route Start Time Stop Time Status Last Admin Pantoprazole Sodium 80 mg/ Sodium Chloride 100 ml @ 10 mls/hr Q10H IV 11/10/16 06:30 11/10/16 11:18 (NS 250 ml Inj) 250 ml @ 15 mls/hr ONCE ONCE IV 11/10/16 07:15 11/10/16 23:54 11/10/16 11:18 (NS Flush) 2 ml BID IV FLUSH 11/10/16 09:00 11/10/16 11:17 Sodium Chloride 2 ml 2 ml UNSCH PRN IVF 11/10/16 07:15 (NS 1000 ml Inj) 1,000 ml @ 150 mls/hr Q6H40M IV 11/10/16 08:00 11/10/16 11:17 (Tylenol) 650 mg Q6H PRN PO 11/10/16 07:30 (Zofran Inj) 4 mg Q6H PRN IV 11/10/16 07:30 (Reglan Inj) 10 mg Q6H PRN IV 11/10/16 07:30 Miscellaneous Information 1 Q361D XX 11/10/16 07:30 (Chlorhexidine 2% Cloth) 3 pack Taper DAILY@04 TOP 11/11/16 04:00 11/07/17 03:59 (Chlorhexidine 2% Cloth) 3 pack UNSCH PRN TOP 11/10/16 07:30 (Diane-Colace) 1 tab BID PO 11/10/16 09:00 (Milk Of Magnesia Liq) 30 ml Q12H PRN PO 11/10/16 07:30 (Senokot) 17.2 mg Q12H PRN PO 11/10/16 07:30 (Dulcolax Supp) 10 mg DAILY PRN RECTAL 11/10/16 07:30 (Lactulose Liq) 30 ml DAILY PRN PO 11/10/16 07:30 Family History Non contributory Social History +Tobacco use--- 1/2 pack daily Denies ETOH Denies illicit drug use Physical Exam Vital Signs Vital Signs Date Time Temp Pulse Resp B/P Pulse Ox O2 Delivery O2 Flow Rate FiO2 11/10/16 12:00 98.4 75 15 102/57 98 11/10/16 10:00 98.6 75 14 119/69 97 11/10/16 10:00 75 11/10/16 09:55 97.9 84 16 112/71 99 Room Air 11/10/16 09:40 98.2 88 17 128/70 100 Room Air 11/10/16 09:25 98.3 83 17 115/72 99 Room Air 11/10/16 09:10 17 11/10/16 09:00 84 16 98/62 98 Room Air 11/10/16 08:45 87 17 93/63 97 Room Air 11/10/16 08:30 80 17 91/62 96 Room Air 11/10/16 08:15 78 17 102/62 99 Room Air 11/10/16 08:00 88 17 140/72 98 Room Air 11/10/16 07:45 89 17 112/72 100 Room Air 11/10/16 07:30 82 17 91/64 96 Room Air 11/10/16 07:30 17 96 Room Air 11/10/16 07:30 17 6/6/17 06:50 89 95/63 11/10/16 06:30 92 20 97/64 97 Room Air 11/10/16 06:15 98 Room Air 11/10/16 06:15 136 18 84/61 100 Room Air 11/10/16 06:06 97.6 151 18 100/76 100 Physical Exam GENERAL: 56 year old male resting in bed in no acute distress. SKIN: Warm and dry. HEAD: Atraumatic. Normocephalic. EYES: Pupils equal and round. No scleral icterus. No injection or drainage. ENT: No nasal bleeding or discharge. Mucous membranes pink and moist. NECK: Trachea midline. CARDIOVASCULAR: Regular rate and rhythm. RESPIRATORY: No accessory muscle use. Clear to auscultation. Breath sounds equal bilaterally. GASTROINTESTINAL: Abdomen soft, RLQ and LLQ tenderness with palpation, nondistended. MUSCULOSKELETAL: Extremities without clubbing, cyanosis, or edema. No obvious deformities. NEUROLOGICAL: Awake and alert. No obvious cranial nerve deficits. Motor grossly within normal limits. Five out of 5 muscle strength in the arms and legs. Normal speech. PSYCHIATRIC: Appropriate mood and affect; insight and judgment normal. Laboratory Laboratory Tests Test 11/10/16 11/10/16 11/10/16 06:20 07:01 09:00 White Blood Count 15.3 Red Blood Count 3.83 Hemoglobin 11.6 8.7 Hematocrit 35.0 26.4 Mean Corpuscular Volume 91.4 Mean Corpuscular Hemoglobin 30.3 Mean Corpuscular Hemoglobin 33.1 Concent Red Cell Distribution Width 16.1 Platelet Count 248 Mean Platelet Volume 7.6 Neutrophils (%) (Auto) 70.7 Lymphocytes (%) (Auto) 22.1 Monocytes (%) (Auto) 6.2 Eosinophils (%) (Auto) 0.7 Basophils (%) (Auto) 0.3 Neutrophils # (Auto) 10.9 Lymphocytes # (Auto) 3.4 Monocytes # (Auto) 0.9 Eosinophils # (Auto) 0.1 Basophils # (Auto) 0.0 CBC Comment DIFF FINAL Differential Comment Prothrombin Time 12.3 Prothromb Time International 1.1 Ratio Activated Partial 24.0 Thromboplast Time Sodium Level 144 Potassium Level 5.1 Chloride Level 110 Carbon Dioxide Level 25.5 Anion Gap 9 Blood Urea Nitrogen 32 Creatinine 0.97 Estimat Glomerular Filtration 80 Rate Random Glucose 159 Calcium Level 8.2 Magnesium Level 1.8 Total Bilirubin 0.4 Aspartate Amino Transf 13 (AST/SGOT) Alanine Aminotransferase 25 (ALT/SGPT) Alkaline Phosphatase 49 Troponin I LESS THAN 0.02 Total Protein 5.1 Albumin 2.5 Lipase 69 Blood Type AB POSITIVE Antibody Screen NEGATIVE Crossmatch Leukocyte-Reduced Red Blood Cells Blood Bank Comment Result Diagram: 11/10/16 0900 11/10/16 0620 Imaging Last 48 hours Impressions Chest X-Ray 11/10/16 0617 Signed Impressions: Service Date/Time: Thursday, November 10, 2016 06:25 - CONCLUSION: Normal examination. Right subclavian multilead pacer in good position Quincy Thomas MD Abdomen/Pelvis CT 11/10/16 0000 Signed Impressions: Service Date/Time: Thursday, November 10, 2016 09:02 - CONCLUSION: 1. Post surgical changes involving the stomach. 2. The patient is post cholecystectomy. 3. Simple cysts within the kidneys bilaterally. 4. Degenerative changes throughout the spine. 5. No definite abnormality to explain the patient's hematochezia identified. Phuc Zhang MD Assessment and Plan Problem List: (1) History of esophagogastroduodenoscopy (EGD) Comment: With recent biopsy done yesterday (2) Upper gastrointestinal bleed (3) Nausea and vomiting (4) Vomiting (5) Anemia (6) History of cholecystectomy (7) H/O gastric bypass (8) Rapid weight loss Assessment and Plan 56 year old male s/p outpatient EGD/Colonoscopy with hematemesis and rectal bleeding -GI consult---planning EGD/Colonoscopy today -NPO -CT abd/pelvis reviewed -General Surgery will be available should the patient require any surgical intervention -As of right now, no plans for any surgical intervention Discussed Condition With Dr. Brothers Mr. Sullivan + and daughter at bedside Attending Statement NOTE FOR SURGICAL ATTENDING, DR. IAIN BROTHERS I agree with above assessment and plan. The exam, history, and the medical decision-making described in the above note were completed with the assistance of the mid-level provider. I reviewed and agree with the findings presented. seen at the bedside with family present I attest that I had a [id number] encounter with the patient on the same day, and personally performed and documented my assessment and findings in the medical record. Patient did have an EGD and colonoscopy yesterday with biopsies I suspect these biopsy sites potentially could have bled to give me a source of upper lower GI bleed He may have a bleeding disorder Transfuse as necessary reevaluate with EGD colonoscopy The following services were provided during this hospital visit: Chart data review, vital sign assessments/reviewing monitor data Review of consultations notes if present. Medication orders/review and/or management Ordering and/or reviewing lab tests Ordering and/or interpreting/reviewing x-rays and/or diagnostic studies Care of the patient and discussion of the patient with the care team Documentation time To help prompt me to consider important information that might be impacting today's encounter and assessment, information from prior notes written by myself or my colleagues may have been "brought forward/copy and pasted" into today's note. Problem Qualifiers (1) Nausea and vomiting: Qualified Code: K92.0 - Hematemesis with nausea (2) Anemia: Chelle Leung Nov 10, 2016 14:39 Iain Brothers MD Nov 10, 2016 15:36
[2016-11-10] MEDS ORDERED: EPINEPHrine HCL (1:10,000) 1 MG/10 ML SYRINGE OTHER ONE (15:37)
[2016-11-10] MEDS ORDERED: PROPOFOL 200 MG/20 ML AMP IV PUSH ONE (15:42)
--- NOTE | 2016-11-10 15:50 | GIPROC ---
[facility] [address] [facility]. [facility], [address] EGD PROCEDURE REPORT EXAM DATE: 11/10/2016 PATIENT NAME: Richard Sullivan MR #: [id number] BIRTHDATE: 1960 ATTENDING: Chandrika Hopson MD ORDER #: [id number] [employer]PERVIS[employer]: Sophie Mike and Pio Perry STATUS: inpatient INDICATIONS: The patient is a 56 yr old male here for an EGD due to hematemesis and hematochezia PROCEDURE PERFORMED: EGD w/ control of bleeding MEDICATIONS: Per Anesthesia and None. TOPICAL ANESTHETIC: none CONSENT: The patient understands the risks and benefits of the procedure and understands that these risks include, but are not limited to: sedation, allergic reaction, infection, perforation and/or bleeding. Alternative means of evaluation and treatment include, among others: physical exam, x-rays, and/or surgical intervention. The patient elects to proceed with this endoscopic procedure. medical equipment was checked for proper function. Hand hygiene and appropriate measures for infection prevention was taken. After the risks, benefits and alternatives of the procedure were thoroughly explained, Informed consent was verified, confirmed and timeout was successfully executed by the treatment team. The patient was anesthetized with topical anesthesia and the Pentax [id number] endoscope was introduced through the mouth and advanced to the proximal jejunum. Retroflexion was not performed The gastroscope was then slowly withdrawn and removed. ESOPHAGUS: The esophagus was otherwise normal. STOMACH: A gastric bypass was found in the gastric fundus. JEJUNUM: Clotted blood was found in the proximal jejunum. Hemostasis was attempted by placing a single Cook instinct hemoclip on the bleeding site(s). Submucosal injection of 4ml of epinephrine 1:10,000 was performed around the bleeding site with complete hemostasis achieved. ADVERSE EVENTS: There were no complications. IMPRESSIONS: 1. The esophagus was otherwise normal 2. Gastric bypass was found in the gastric fundus 3. Blood was found in the proximal jejunum, with blood clot covering the biopsy site; Hemostasis was attempted by placing a single hemoclip on the bleeding site(s); Submucosal injection of 4ml of epinephrine 1:10,000 was performed around the bleeding site 4. Retroflexion was not performed RECOMMENDATIONS: 1. Continue PPI 2. Hematocrit 3. ICU monitoring PATIENT CONDITION: stable DISPOSITION: Observation REPEAT EXAM: NONE Chandrika Hopson MD eSigned: Chandrika Hopson MD 11/10/2016 3:50 PM cc: PATIENT NAME: Richard Sullivan MR#: [id number]
[2016-11-10] MEDS ORDERED: *PROMETHAZINE 25 MG/ML VIAL PERIprocedural use ONLY ONE (16:01)
[2016-11-10] MEDS ORDERED: DO NOT ADM ANY ANTICOAGULANT DRUGS PRN (16:30)
[2016-11-10] MEDS ORDERED: MORPHINE SULFATE 15 MG TAB PO STA (16:39)
[2016-11-10] MEDS: oxyCODONE/ACETAMINOPHEN 10 MG/325 MG TAB PO PRN (17:39)
[2016-11-10 18:12] LABS: HEMATOCRIT 29.7 % (39.0-51.0); REVIEW FLAG FINAL
[2016-11-10] MEDS ORDERED: MORPHINE SULFATE 60 MG CONTROLLED RELEASE TAB PO SCH (20:00)
[2016-11-10 21:54] LABS: HEMATOCRIT 27.3 % (39.0-51.0); REVIEW FLAG FINAL
--- NOTE | 2016-11-10 21:57 | EKG ---
Date Performed: 11/10/2016 Time Performed: 07:04:38 PTAGE: 56 years EKG: Sinus rhythm Septal T wave changes are nonspecific Since previous tracing, no significant change noted Borderline ECG PREVIOUS TRACING : 09/23/2016 11.44 DOCTOR: Ryan Mai Interpretating Date/Time 11/10/2016 21:55:01
[2016-11-11] VITALS: BP 116/62; PULSE 79; RESP 20; TEMP 98.4; O2SAT 95
[2016-11-11] MEDS: oxyCODONE/ACETAMINOPHEN 10 MG/325 MG TAB PO PRN (01:14)
[2016-11-11 02:00] VITALS: PULSE 76
[2016-11-11 03:45] LABS: AUTOMATED NEUTROPHIL # 4.5 TH/MM3 (1.8-7.7); BASOPHIL % 0.3 % (0.0-2.0); EOSINOPHIL # 0.1 TH/MM3 (0-0.4); EOSINOPHIL % 0.8 % (0.0-4.0); HEMO FLAGS DIFF FINAL; LYMPH % 33.6 % (9.0-44.0); LYMPHOCYTE # 2.7 TH/MM3 (1.0-4.8); MEAN CELL VOLUME 85.2 FL (80.0-100.0); MEAN CORPUSCULAR HEMOGLOBIN 29.2 PG (27.0-34.0); MEAN CORPUSCULAR HGB CONC 34.3 % (32.0-36.0); MONO % 9.2 % (0.0-8.0); NEUT % 56.1 % (16.0-70.0); PLATELET COUNT 155 TH/MM3 (150-450); RED BLOOD COUNT 3.17 MIL/MM3 (4.50-5.90); RED CELL DISTRIBUTION WIDTH 18.8 % (11.6-17.2)
[2016-11-11 03:58] LABS: INTERNATIONAL NORMALIZED RATIO 1.2 RATIO; PROTHROMBIN TIME - PATIENT 12.9 SEC (9.8-11.6)
[2016-11-11 04:00] VITALS: BP 111/59; PULSE 70; RESP 18; TEMP 98.3; O2SAT 96
[2016-11-11] MEDS ORDERED: CHLORHEXIDINE GLUCONATE 2 % 1 PACK (2 CLOTHS) TOP SCH (04:00)
[2016-11-11 04:05] LABS: ALT (GPT) 22 U/L (12-78); ANION GAP 8 MEQ/L (5-15); AST (GOT) 17 U/L (15-37); BICARBONATE 25.7 MEQ/L (21.0-32.0); BLOOD UREA NITROGEN 16 MG/DL (7-18); CHLORIDE 114 MEQ/L (98-107); GLOMERULAR FILTRATION RATE 145 ML/MIN (>89); POTASSIUM 3.6 MEQ/L (3.5-5.1); SODIUM (NA) 148 MEQ/L (136-145)
[2016-11-11 04:08] LABS: ALKALINE PHOSPHATASE 40 U/L (45-117); TOTAL BILIRUBIN ADULT 0.4 MG/DL (0.2-1.0)
[2016-11-11] MEDS: PANTOPRAZOLE INJ 80 MG in SODIUM CHLORIDE 0.9% INJ 100 ML IV SCH (05:06)
[2016-11-11 06:00] VITALS: PULSE 72
== END 2016-11-11 07:00 | disposition left against medical advice (07) | DRG 920 ==
LOC: PHED 05:58 → PHEDA 07:14 → HIME 10:10
PROVIDERS: ADMIT Internal Medicine Critical Care Medicine; ATTEND Internal Medicine Critical Care Medicine
PROC: 30233N1 Transfusion of Nonautologous Red Blood Cells into Peripheral Vein, Percutaneous Approach (ICD-10-PCS; 2016-11-10)
PROC: 0W3P8ZZ Control Bleeding in Gastrointestinal Tract, Via Natural or Artificial Opening Endoscopic (ICD-10-PCS; principal; 2016-11-10 14:50)
DX: K91.840 Postprocedural hemorrhage of a digestive system organ or structure following a digestive system procedure (principal); K92.0 Hematemesis; D62 Acute posthemorrhagic anemia; I95.9 Hypotension, unspecified; B19.10 Unspecified viral hepatitis B without hepatic coma; K92.1 Melena; G62.9 Polyneuropathy, unspecified; Z98.84 Bariatric surgery status; F17.210 Nicotine dependence, cigarettes, uncomplicated; I25.10 Atherosclerotic heart disease of native coronary artery without angina pectoris; I10 Essential (primary) hypertension; I25.2 Old myocardial infarction; Z95.0 Presence of cardiac pacemaker; B19.20 Unspecified viral hepatitis C without hepatic coma; R63.4 Abnormal weight loss; Z79.82 Long term (current) use of aspirin; G89.4 Chronic pain syndrome
CPT/HCPCS: 36430; 71010; 74177; 80053; 83690; 83735; 84443; 84484; 85014; 85018; 85025; 85610; 85730; 86850; 86900; 86901; 86920; 87641; 93005; 96361; 96365; 96374; 96376; C9113; J0171; J0610; J2270; J2405; J2550; J3010; J7030; J7050; P9016; Q9967